=== PATIENT | female | born 1950 | race Asian ===

== ENCOUNTER 2017-06-20 23:35 | Emergency (ER) | payer MEDICARE, OTHER ==
[2017-06-20 23:46] VITALS: BP 105/52
[2017-06-21] MEDS ORDERED: OSELTAMIVIR 75 MG CAPSULE PO STA (03:19)
--- NOTE | 2017-06-22 02:25 | ED Physician Documentation ---
History of Present Illness - Stated complaint Stated Complaint: COUGH,HEADACHE - Chief complaint Chief Complaint: Fever - History obtained from History obtained from: Patient - History of Present Illness Timing: How many weeks ago (1) Pain level now: 0 Improved by: no ameliorating factors Worsened by: no exacerbating factors - Additonal information Additional information: c/o 1 week of nausea, vomiting, and diarrhea. these symptoms improved past 1-2 days but then she developed generalized body aches, malaise, chills, and sweats. lightheaded earlier this afternoon while ambulating at home, near- syncopal. Review of Systems Constitutional: reports: Chills, Myalgias, Fatigue, Sweats. denies: Fever (did not take temperature at home) Throat: denies: Sore throat Cardiac: reports: Reviewed and negative Respiratory: reports: Reviewed and negative GI: reports: Nausea, Vomiting, Diarrhea. denies: Abdominal Pain : denies: Dysuria, Frequency PD PAST MEDICAL HISTORY - Past Medical History Cardiovascular: None Respiratory: None Neuro: None Endocrine/Autoimmune: HyPOthyroidism GI: None Psych: None - Past Surgical History Past Surgical History: Yes General: Cholecystectomy - Present Medications Home Medications: Ambulatory Orders Medication Instructions Recorded Confirmed Calcium Carbonate/Vitamin D3 1 tab PO DAILY 06/23/15 06/23/15 [Calcium 500 + Vit D Caplet] Meclizine [Antivert] 25 mg PO Q6H PRN #20 tablet 06/23/15 06/20/17 Ondansetron Odt [Zofran] 4 mg TL Q6H PRN #10 tablet 06/23/15 06/20/17 Propranolol [Inderal] 30 mg PO BID 06/23/15 06/20/17 Simvastatin 10 mg PO DAILY 06/23/15 06/20/17 hydroCHLOROthiazide 12.5 mg PO DAILY 06/23/15 06/20/17 [Hydrochlorothiazide] Ondansetron Odt [Zofran] 4 mg TL Q6H PRN #10 tablet 06/21/17 Oseltamivir [Tamiflu] 75 mg PO BID #9 capsule 06/21/17 - Allergies Allergies/Adverse Reactions: Allergies Allergy/AdvReac Type Severity Reaction Status Date / Time No Known Drug Allergies Allergy Verified 06/20/17 23:42 - Social History Does the pt smoke?: No Smoking Status: Never smoker Does the pt drink ETOH?: No Does the pt have substance abuse?: No - Immunizations Immunizations are current?: Yes PD ED PE NORMAL - Vitals Vital signs reviewed: Yes - General General: Alert and oriented X 3, No acute distress, Well developed/nourished - HEENT HEENT: Moist mucous membranes - Neck Neck: Supple, no meningeal sign - Cardiac Cardiac: RRR, No murmur, No gallop, No rub - Respiratory Respiratory: No respiratory distress, Clear bilaterally - Abdomen Abdomen: Normal bowel sounds, Soft, Non tender, Non distended - Back Back: No CVA TTP - Derm Derm: Normal color, Warm and dry - Extremities Extremities: No edema - Neuro Neuro: Alert and oriented X 3, 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 she is positive for influenza B, will treat with tamiflu Departure - Departure Disposition: 01 Home, Self Care Clinical Impression: Influenza Diarrhea Qualifiers: Diarrhea type: unspecified type Qualified Code(s): R19.7 - Diarrhea, unspecified Vomiting Qualifiers: Vomiting type: unspecified Vomiting Intractability: non-intractable Nausea presence: with nausea Qualified Code(s): R11.2 - Nausea with vomiting, unspecified Condition: Good Instructions: ED Flu, Medication: Tamiflu (Oseltamivir) Follow-Up: Todd Aguilar DO [Primary Care Provider] - (2-3 days) Prescriptions: Ondansetron Odt [Zofran] 4 mg TL Q6H PRN #10 tablet PRN Reason: Nausea / Vomiting Oseltamivir [Tamiflu] 75 mg PO BID #9 capsule Discharge Date/Time: 06/21/17 03:26
== END 2017-06-21 03:26 | disposition home or self-care (01) ==
LOC: ED 23:35
DX: R19.7 Diarrhea, unspecified (principal); R11.2 Nausea with vomiting, unspecified; E03.9 Hypothyroidism, unspecified
CPT/HCPCS: 87275; 87276; 99283; A9270

== ENCOUNTER 2018-08-24 16:58 | Outpatient (CLI) | payer MEDICARE, OTHER ==
--- NOTE | 2018-08-24 18:51 | Ultrasound Report ---
Reason: ACUTE KIDNEY FAILURE Procedure Date: 08/24/2018 Accession Number: [id number] / [id number] Procedure: US - Retroperitoneal CPT Code: FULL RESULT: EXAM: RENAL ULTRASOUND EXAM DATE: 08/24/2018 06:00 PM. CLINICAL HISTORY: ACUTE KIDNEY FAILURE. COMPARISON: ABD-DETAILED 03/24/2014 2:03 PM. TECHNIQUE: Real-time scanning was performed with static images obtained. FINDINGS: Right Kidney: 8.4 x 3.9 x 3.8 cm. Left Kidney: 8.4 x 4.3 x 4.6 cm. Bilateral kidneys measure mildly small. Renal cortical thickness and echotexture appear within normal limits. No hydronephrosis or perinephric fluid collection. No sonographic evidence for renal calculi. Bladder: Bilateral jets seen. The prevoid bladder volume was 291 cc. The postvoid bladder volume was 24.4 cc. Other: Exam limited by overlying bowel. IMPRESSION: Bilateral kidneys measure mildly small. No hydronephrosis. Mild postvoid residual. RADIA
== END 2018-08-24 16:59 | disposition home or self-care (01) ==
LOC: DI 16:58
PROVIDERS: ATTEND Internal Medicine Nephrology
DX: N17.9 Acute kidney failure, unspecified (principal)
CPT/HCPCS: 76770

== ENCOUNTER 2018-08-26 10:15 | Outpatient (CLI) | payer MEDICARE, OTHER ==
[2018-08-29 15:11] LABS: ANA SCREEN NEGATIVE (NEGATIVE)
[2018-08-29 16:06] LABS: COMPLEMENT COMPONENT C3C 108 mg/dL (83-193); COMPLEMENT COMPONENT C4C 33 mg/dL (15-57)
[2018-08-29 22:30] LABS: ALBUMIN 3.6 g/dL (3.8-4.8); ALPHA 1 GLOBULIN 0.3 g/dL (0.2-0.3); ALPHA 2 GLOBULIN 0.8 g/dL (0.5-0.9); BETA 1 GLOBULIN 0.4 g/dL (0.4-0.6); BETA 2 GLOBULIN 0.4 g/dL (0.2-0.5); GAMMA GLOBULIN 1.2 g/dL (0.8-1.7)
== END 2018-08-26 10:16 | disposition home or self-care (01) ==
LOC: LAB 10:15
PROVIDERS: ATTEND Internal Medicine Nephrology
DX: L93.2 Other local lupus erythematosus (principal); I50.32 Chronic diastolic (congestive) heart failure; M31.30 Wegener's granulomatosis without renal involvement; N00.9 Acute nephritic syndrome with unspecified morphologic changes; I77.6 Arteritis, unspecified; D47.2 Monoclonal gammopathy; R80.9 Proteinuria, unspecified
CPT/HCPCS: 36415; 81599; 82570; 83520; 83880; 83883; 84155; 84156; 84165; 84166; 86021; 86038; 86160